=== PATIENT | male | born 1965 | race Caucasian/White ===

== ENCOUNTER 2020-02-04 17:12 | Inpatient (IN) | payer MEDICAID ==
[~2020-02-04] VITALS: Ht 172.7 cm; Wt 62.6 kg
[2020-02-04] MEDS ORDERED: OCTREOTIDE 1,000 MCG in SODIUM CHLORIDE 0.9% 100 ML IV ONE ×2 (18:30→20:45)
[2020-02-04] MEDS ORDERED: CEFTRIAXONE 1 G PREMIX 50 ML IV ONE (18:30)
[2020-02-04] MEDS ORDERED: PANTOPRAZOLE SODIUM 40 MG/VIAL IV ONE (18:30)
[2020-02-04 18:45] LABS: BASOPHILS % 0.3 % (0.0-2.0); EOSINOPHILS % 0.9 % (0.0-5.0); LYMPHOCYTES % 27.4 % (20.0-50.0); MEAN CORPUSCULAR HEMOGLOBIN 33.5 pg (28.0-32.0); MEAN CORPUSCULAR VOLUME 92.7 fL (80.0-94.0); MEAN PLATELET VOLUME 8.5 fl (7.4-10.4); MONOCYTES % 7.6 % (2.0-8.0); NEUTROPHILS % 63.8 % (40.0-76.0); PLATELET 199 x1000/uL (130-400); RED BLOOD CELL COUNT 1.86 mill/uL (4.7-6.1); RED CELL DISTRIBUTION WIDTH 14.2 % (11.6-14.6)
[2020-02-04 18:51] LABS: CHLORIDE 96 mEq/L (98-107)
[2020-02-04 18:54] LABS: HEMATOCRIT. 17.2 % (42.0-52.0); HEMOGLOBIN. 6.2 g/dL (14.0-18.0)
[2020-02-04 18:59] LABS: PROTHROMBIN TIME 10.9 sec (9.6-11.0)
[2020-02-05 00:38] LABS: BASOPHILS % 0.4 % (0.0-2.0); EOSINOPHILS % 1.5 % (0.0-5.0); LYMPHOCYTES % 33.9 % (20.0-50.0); MEAN CORPUSCULAR HEMOGLOBIN 32.9 pg (28.0-32.0); MEAN CORPUSCULAR VOLUME 90.8 fL (80.0-94.0); MEAN PLATELET VOLUME 8.1 fl (7.4-10.4); MONOCYTES % 9.1 % (2.0-8.0); NEUTROPHILS % 55.1 % (40.0-76.0); PLATELET 168 x1000/uL (130-400); RED BLOOD CELL COUNT 1.98 mill/uL (4.7-6.1); RED CELL DISTRIBUTION WIDTH 14.2 % (11.6-14.6)
[2020-02-05 00:40] LABS: HEMOGLOBIN. 6.5 g/dL (14.0-18.0)
[2020-02-05] MEDS ORDERED: IPRATROPIUM/ALBUTEROL 0.5-3(2.5)MG/3ML NEB ORI PRN (02:45)
[2020-02-05] MEDS ORDERED: MAGNESIUM/ALUMINUM HYDROXIDE/SIMETHICONE 30ML UDC PO PRN (02:45)
[2020-02-05] MEDS ORDERED: GUAIFENESIN 200MG/10ML SUGAR FREE UDC PO PRN (02:45)
[2020-02-05] MEDS ORDERED: ONDANSETRON HCL 4MG/2ML INJ IV PRN (02:45)
[2020-02-05] MEDS ORDERED: ACETAMINOPHEN 325MG TABLET PO PRN ×2 (02:45)
[2020-02-05] MEDS ORDERED: DEXTROSE 50% WATER 50ML SYRINGE IV PRN (02:45)
[2020-02-05] MEDS ORDERED: DOCUSATE SODIUM 100MG CAPSULE PO PRN (02:45)
[2020-02-05] MEDS ORDERED: CLONIDINE 0.1MG TABLET PO PRN (02:45)
[2020-02-05] MEDS: DEXT 5%/LACTATED RINGERS 1,000 ML IV SCH ×2 (04:21→17:57)
[2020-02-05] MEDS ORDERED: OCTREOTIDE 1,000 MCG in SODIUM CHLORIDE 0.9% 98 ML IV SCH (05:00)
[2020-02-05] MEDS ORDERED: PANTOPRAZOLE 80 MG in SODIUM CHLORIDE 0.9% 100 ML IV SCH (05:00)
[2020-02-05 06:12] LABS: *AMPHETAMINES SCREEN URINE NEGATIVE (NEGATIVE); *BARBITURATES SCREEN URINE NEGATIVE (NEGATIVE); *BENZODIAZEPINES SCREEN URINE NEGATIVE (NEGATIVE); *COCAINE SCREEN URINE NEGATIVE (NEGATIVE); METHADONE URINE SCREEN NEGATIVE (NEGATIVE)
[2020-02-05 06:13] LABS: CANNABINOID URINE SCREEN PRESUMTIVE POSITIVE (NEGATIVE); OPIATES URINE SCREEN NEGATIVE (NEGATIVE); PHENCYCLIDINE URINE SCREEN NEGATIVE (NEGATIVE)
[2020-02-05 11:30] LABS: BASOPHILS % 0.6 % (0.0-2.0); EOSINOPHILS % 2.1 % (0.0-5.0); HEMATOCRIT. 24.4 % (42.0-52.0); HEMOGLOBIN. 8.9 g/dL (14.0-18.0); LYMPHOCYTES % 37.5 % (20.0-50.0); MEAN CORPUSCULAR HEMOGLOBIN 32.8 pg (28.0-32.0); MEAN CORPUSCULAR VOLUME 89.9 fL (80.0-94.0); MEAN PLATELET VOLUME 8.2 fl (7.4-10.4); MONOCYTES % 8.7 % (2.0-8.0); NEUTROPHILS % 51.1 % (40.0-76.0); PLATELET 144 x1000/uL (130-400); RED BLOOD CELL COUNT 2.71 mill/uL (4.7-6.1); RED CELL DISTRIBUTION WIDTH 14.6 % (11.6-14.6)
[2020-02-05] MEDS: BLOOD SUGAR DIAGNOSTIC STRIP TEST SCH ×3 (11:30→21:05)
[2020-02-05] MEDS: INSULIN LISPRO 100 UNITS/ML SUBCUT SCH ×3 (12:00→21:14)
[2020-02-05 13:30] VITALS: BP 158/86
[2020-02-05] MEDS ORDERED: METF-815 PO (14:25)
[2020-02-05 15:56] LABS: HEMATOCRIT 24.1 % (42.0-52.0); HEMOGLOBIN 8.9 g/dL (14.0-18.0)
[2020-02-05 16:13] VITALS: BP 148/80
[2020-02-05 19:19] LABS: HEMATOCRIT 25.4 % (42.0-52.0); HEMOGLOBIN 9.2 g/dL (14.0-18.0)
[2020-02-05 20:47] VITALS: BP 143/81
[2020-02-05] MEDS: PANTOPRAZOLE SODIUM 40 MG/VIAL IV SCH (21:14)
[2020-02-06 00:03] VITALS: BP 131/83
[2020-02-06 01:34] LABS: HEMATOCRIT 25.4 % (42.0-52.0); HEMOGLOBIN 9.4 g/dL (14.0-18.0)
[2020-02-06 04:00] VITALS: BP 133/88
[2020-02-06] MEDS: BLOOD SUGAR DIAGNOSTIC STRIP TEST SCH ×4 (05:26→21:00)
[2020-02-06] MEDS: INSULIN LISPRO 100 UNITS/ML SUBCUT SCH ×4 (05:33→21:06)
[2020-02-06] MEDS: DEXT 5%/LACTATED RINGERS 1,000 ML IV SCH ×2 (05:34→21:07)
[2020-02-06 06:05] LABS: PARTIAL THROMBOPLASTIN TIME 23.3 sec (23.4-31.0)
[2020-02-06 06:32] LABS: CHLORIDE 108 mEq/L (98-107)
[2020-02-06 06:43] LABS: PHOSPHORUS 4.2 mg/dL (2.5-4.9)
[2020-02-06 08:00] VITALS: BP 131/76
[2020-02-06 08:00] LABS: BASOPHILS % 0.4 % (0.0-2.0); EOSINOPHILS % 2.7 % (0.0-5.0); HEMATOCRIT. 25.7 % (42.0-52.0); HEMOGLOBIN. 9.2 g/dL (14.0-18.0); LYMPHOCYTES % 41.9 % (20.0-50.0); MEAN CORPUSCULAR HEMOGLOBIN 32.5 pg (28.0-32.0); MEAN CORPUSCULAR VOLUME 90.6 fL (80.0-94.0); MEAN PLATELET VOLUME 8.2 fl (7.4-10.4); MONOCYTES % 8.5 % (2.0-8.0); NEUTROPHILS % 46.5 % (40.0-76.0); PLATELET 164 x1000/uL (130-400); RED BLOOD CELL COUNT 2.84 mill/uL (4.7-6.1); RED CELL DISTRIBUTION WIDTH 14.8 % (11.6-14.6)
[2020-02-06] MEDS: PANTOPRAZOLE SODIUM 40 MG/VIAL IV SCH (10:14)
[2020-02-06] MEDS ORDERED: PROPOFOL 200MG/20ML VIAL IV ONE (11:20)
[2020-02-06 12:30] VITALS: BP 137/82
[2020-02-06 16:00] VITALS: BP 117/81
[2020-02-06] MEDS ORDERED: SORBITOL 70% SOLN 30ML PO NR (18:00)
[2020-02-06 20:00] VITALS: BP 161/100
[2020-02-07] VITALS: BP 152/112
[2020-02-07 04:00] VITALS: BP 135/96
[2020-02-07 05:48] LABS: BASOPHILS % 0.3 % (0.0-2.0); EOSINOPHILS % 3.2 % (0.0-5.0); HEMATOCRIT. 27.5 % (42.0-52.0); HEMOGLOBIN. 9.9 g/dL (14.0-18.0); LYMPHOCYTES % 35.6 % (20.0-50.0); MEAN CORPUSCULAR HEMOGLOBIN 32.8 pg (28.0-32.0); MEAN CORPUSCULAR VOLUME 91.4 fL (80.0-94.0); MEAN PLATELET VOLUME 7.9 fl (7.4-10.4); MONOCYTES % 9.5 % (2.0-8.0); NEUTROPHILS % 51.4 % (40.0-76.0); PLATELET 183 x1000/uL (130-400); RED CELL DISTRIBUTION WIDTH 14.8 % (11.6-14.6)
[2020-02-07 06:16] LABS: CHLORIDE 108 mEq/L (98-107)
[2020-02-07 06:26] LABS: PHOSPHORUS 4.1 mg/dL (2.5-4.9)
[2020-02-07] MEDS: BLOOD SUGAR DIAGNOSTIC STRIP TEST SCH ×3 (06:37→17:19)
[2020-02-07] MEDS ORDERED: SORBITOL 70% SOLN 30ML PO NR (07:00)
[2020-02-07] MEDS: INSULIN LISPRO 100 UNITS/ML SUBCUT SCH ×3 (07:02→17:29)
[2020-02-07 08:00] VITALS: BP 147/101
[2020-02-07] MEDS: DEXT 5%/LACTATED RINGERS 1,000 ML IV SCH (09:18)
[2020-02-07 10:31] VITALS: BP 137/93
[2020-02-07 12:00] VITALS: BP 132/87
[2020-02-07] MEDS ORDERED: PROPOFOL 200MG/20ML VIAL IV ONE (15:29)
[2020-02-07] MEDS ORDERED: LIDOCAINE HCL/PF 1% 10 MG/ML 5ML VIAL ONE (15:29)
[2020-02-07] MEDS ORDERED: SIMETHICONE 40 MG/0.6 ML 30ML ONE (15:37)
[2020-02-07 16:00] VITALS: BP 137/93
== END 2020-02-07 18:20 | disposition home or self-care (01) | DRG 244 ==
LOC: ER 17:12 → MICUSO 22:31 → EDBEDREQ 22:49 → EDBEDREQSVC 22:49 → EDBEDREQTM 22:49 → 5WST 02-05 13:50
PROVIDERS: ADMIT Internal Medicine; ATTEND Internal Medicine
PROC: 30233N1 Transfusion of Nonautologous Red Blood Cells into Peripheral Vein, Percutaneous Approach (ICD-10-PCS; principal; 2020-02-04)
PROC: 0DB68ZX Excision of Stomach, Via Natural or Artificial Opening Endoscopic, Diagnostic (ICD-10-PCS; 2020-02-06)
PROC: 0DJD8ZZ Inspection of Lower Intestinal Tract, Via Natural or Artificial Opening Endoscopic (ICD-10-PCS; 2020-02-07)
DX: K57.31 Diverticulosis of large intestine without perforation or abscess with bleeding (principal); R57.8 Other shock; E11.65 Type 2 diabetes mellitus with hyperglycemia; E44.1 Mild protein-calorie malnutrition; D50.0 Iron deficiency anemia secondary to blood loss (chronic); F10.20 Alcohol dependence, uncomplicated; E87.1 Hypo-osmolality and hyponatremia; E83.51 Hypocalcemia; F12.10 Cannabis abuse, uncomplicated; F17.210 Nicotine dependence, cigarettes, uncomplicated; K44.9 Diaphragmatic hernia without obstruction or gangrene; K64.4 Residual hemorrhoidal skin tags; Z79.4 Long term (current) use of insulin; Z68.21 Body mass index [BMI] 21.0-21.9, adult
CPT/HCPCS: 36415; 71045; 80053; 80305; 82270; 82962; 83036; 83735; 84100; 85014; 85018; 85025; 86850; 86900; 86920; 88305; 88312; 88313; 93005; 93970; 96365; 99285; C9113; J0696; J1815; J2354; J2704; J3490; J7050; J7121; P9016; P9021